=== PATIENT | male | born 1990 | race Caucasian/White ===

== ENCOUNTER 2020-03-06 21:10 | Emergency (ER) | payer MEDICAID ==
[~2020-03-06] VITALS: Ht 185.4 cm; Wt 92.1 kg
[2020-03-06] MEDS ORDERED: IBUPROFEN 600MG TABLET PO ONE (23:45)
[2020-03-06] MEDS ORDERED: TETANUS, DIPHTHERIA, PERTUSSIS VAC/PF 0.5ML (>7YR OLD) IM ONE (23:45)
[2020-03-07 00:21] VITALS: BP 126/79
== END 2020-03-07 00:39 | disposition home or self-care (01) ==
LOC: ER 21:10
DX: S51.812A Laceration without foreign body of left forearm, initial encounter (principal); W26.8XXA Contact with other sharp object(s), not elsewhere classified, initial encounter; Y93.89 Activity, other specified; Y92.89 Other specified places as the place of occurrence of the external cause; Y99.8 Other external cause status
CPT/HCPCS: 12002; 73090; 90471; 90715; 99283